=== PATIENT | male | born 1960 | race Caucasian/White ===

== ENCOUNTER 2021-08-12 15:03 | Outpatient (CLI) | payer MEDICARE ==
[~2021-08-12 15:03] MED LIST: Iopamidol 300 61% 100 ML VIAL FS ONE
== END 2021-08-12 15:04 | disposition home or self-care (01) ==
LOC: CSHCT 15:03
PROVIDERS: ATTEND Urology
DX: R31.0 Gross hematuria (principal); K76.0 Fatty (change of) liver, not elsewhere classified; N20.0 Calculus of kidney
CPT/HCPCS: 74178

== ENCOUNTER 2021-09-17 11:56 | Emergency (ER) | payer MEDICARE ==
[2021-09-17 12:43] LABS: #Basophils 0.1 10x3/uL (0.0-0.2); #Monocytes 0.6 10x3/uL (0.0-1.1); #Neutrophils 10.1 10x3/uL (1.5-8.4); %Basophils 0.8 % (0.0-2.0); %Eosinophils 0.3 % (0.0-6.0); %Lymphocytes 7.9 % (18.0-47.0); %Monocytes 5.2 % (0.0-10.0); %Neutrophils 85.5 % (40.0-75.0); Hemoglobin 15.9 g/dL (13.5-17.5); Mean Corpuscular HGB CONC 35.1 g/dL (32.0-36.0); Mean Corpuscular Hemoglobin 32.9 pg (27.0-33.0); Mean Corpuscular Volume 93.6 fl (81.2-95.1); Mean Platelet Volume 9.3 fl (7.4-10.4); Platelet Count 197 10x3/uL (150-450); RBC Distribution Width 13.1 % (11.5-14.5); Red Blood Cell (RBC) Count 4.84 10x6/uL (4.32-5.72); White Blood Cell (WBC) Count 11.8 10x3/uL (3.5-10.5)
[2021-09-17] MEDS ORDERED: Ondansetron PF 4 MG/2 ML Vial ONE ×2 (12:43→16:51)
[2021-09-17] MEDS ORDERED: Morphine 4 MG/ML VIAL ONE (12:43)
[2021-09-17 12:55] LABS: ALT (SGPT) 105 U/L (8-55); AST (SGOT) 87 U/L (5-34); Albumin 4.4 g/dL (3.5-5.0); Alkaline Phosphatase 64 U/L (40-110); Anion Gap 15 mmol/L (10-20); BUN (Urea Nitrogen) 8 mg/dL (8.4-25.7); Bilirubin, Total 0.8 mg/dL (0.2-1.2); Calc. Creatinine Clearance 0 mL/min (70-130); Calcium 9.2 mg/dL (7.8-10.44); Carbon Dioxide 25 mmol/L (22-29); Chloride 98 mmol/L (98-107); Globulin 3.3 g/dL (2.4-3.5); Glucose 129 mg/dL (70-105); Lipase 20 U/L (8-78); Potassium 4.2 mmol/L (3.5-5.1); Protein, Total 7.7 g/dL (6.0-8.3); Sodium 134 mmol/L (136-145)
[2021-09-17] MEDS ORDERED: Ketorolac Tromethamine 30 MG/ML VIAL ONE (13:48)
[2021-09-17] MEDS ORDERED: Promethazine HCl 25 MG/ML VIAL ONE (13:48)
[2021-09-17 13:49] LABS: Bilirubin Neg (Negative); Blood, Urine 250 (Negative); Clarity Slightly Cloudy (Clear); Glucose, Urine (Dipstick) Normal (Negative); Ketone, Urine Negative (Negative); Leukocyte 500 (Negative); Nitrite Negative (Negative); Protein, Urine (Dipstick) 30 mg/dl (Neg-Trace); Urobilinogen Normal mg/dL (Less than 2)
[2021-09-17 13:55] LABS: Bacteria/HPF 1+ HPF (None Seen); RBC/HPF 21-50 HPF (0-3); Squamous Epithelial 0-3 HPF (0-3); WBC/HPF 21-50 HPF (0-3)
[2021-09-17] MEDS ORDERED: Iopamidol 15 ML ONE (14:45)
[2021-09-17] MEDS ORDERED: Iopamidol 300 61% 100 ML VIAL FS ONE (15:23)
[2021-09-17 15:32] LABS: SARS-CoV-2 NAA Rapid Test Not Detected (NotDetected)
[2021-09-17] MEDS ORDERED: Fentanyl 100 MCG/2 ML VIAL ONE (16:47)
[2021-09-17] MEDS ORDERED: PROPOFOL 20 ML ONE ×2 (16:47→17:08)
[2021-09-17] MEDS ORDERED: Succinylcholine 200 MG/10 ml SYRINGE FS ONE (16:51)
[2021-09-17] MEDS ORDERED: Dexamethasone 4 mg/ml Vial ONE (16:51)
[2021-09-17] MEDS ORDERED: Lidocaine 2% PF 5 ML VIAL ONE (16:51)
== END 2021-09-17 16:39 | disposition admitted as inpatient to this hospital (09) ==
LOC: CSHERS 11:56
PROC: 0T9780Z Drainage of Left Ureter with Drainage Device, Via Natural or Artificial Opening Endoscopic (ICD-10-PCS; principal; 2021-09-17)
PROC: 0T778DZ Dilation of Left Ureter with Intraluminal Device, Via Natural or Artificial Opening Endoscopic (ICD-10-PCS; principal; 2021-09-17)
PROC: BT1FZZZ Fluoroscopy of Left Kidney, Ureter and Bladder (ICD-10-PCS; principal; 2021-09-17)
DX: N13.2 Hydronephrosis with renal and ureteral calculous obstruction (principal); N39.0 Urinary tract infection, site not specified; Z20.822 Contact with and (suspected) exposure to COVID-19; I25.2 Old myocardial infarction; E78.5 Hyperlipidemia, unspecified; I10 Essential (primary) hypertension; F17.210 Nicotine dependence, cigarettes, uncomplicated; Z79.899 Other long term (current) drug therapy
CPT/HCPCS: 52332; 74177; 80053; 83605; 83690; 85025; 96361; 96365; 96367; 96375; 99285; C2625; U0002; 81003; 81015; J0744; J1100; J1885; J2001; J2270; J2405; J2550; J2704; J3010; Q9967

== ENCOUNTER 2022-07-24 07:21 | Outpatient (CLI) | payer MEDICARE ==
[2022-07-24] MEDS ORDERED: Iopamidol 300 61% 100 ML VIAL FS ONE (14:30)
== END 2022-07-24 07:22 | disposition home or self-care (01) ==
LOC: CSHCT 07:21
PROVIDERS: ATTEND Urology
DX: C68.9 Malignant neoplasm of urinary organ, unspecified (principal); Z90.5 Acquired absence of kidney; N13.30 Unspecified hydronephrosis; N13.8 Other obstructive and reflux uropathy; R91.8 Other nonspecific abnormal finding of lung field; M87.9 Osteonecrosis, unspecified
CPT/HCPCS: 74178; 82565; Q9967

== ENCOUNTER 2022-12-11 09:53 | Outpatient (CLI) | payer MEDICARE | END 2022-12-11 09:54 | disposition home or self-care (01) | LOC: CSHRAD 09:53 | PROVIDERS: ATTEND Family Medicine | DX: M79.672 Pain in left foot (principal) ==

== ENCOUNTER 2023-05-01 07:26 | Day surgery (SDC) | payer MEDICARE ==
[2023-04-30 08:50] VITALS: BMI 33.3
[2023-05-01] MEDS ORDERED: Midazolam HCl 2 mg/2 ml Vial ONE (09:58)
[2023-05-01] MEDS ORDERED: Glycopyrrolate 0.2 MG/ML 5 ML SYRINGE ONE (09:59)
[2023-05-01] MEDS ORDERED: PROPOFOL 40 ML ONE (09:59)
[2023-05-01] MEDS ORDERED: Lidocaine 1% PF 5 ML VIAL ONE (09:59)
[2023-05-01] MEDS ORDERED: PROPOFOL 20 ML ONE ×4 (10:16→11:01)
== END 2023-05-01 11:45 | disposition home or self-care (01) ==
LOC: CSHSDC 07:26
PROVIDERS: ATTEND Internal Medicine Gastroenterology
PROC: 0DBK8ZX Excision of Ascending Colon, Via Natural or Artificial Opening Endoscopic, Diagnostic (ICD-10-PCS; principal; 2023-05-01)
PROC: 0DBN8ZX Excision of Sigmoid Colon, Via Natural or Artificial Opening Endoscopic, Diagnostic (ICD-10-PCS; 2023-05-01)
PROC: 0DB68ZX Excision of Stomach, Via Natural or Artificial Opening Endoscopic, Diagnostic (ICD-10-PCS; 2023-05-01)
DX: Z12.11 Encounter for screening for malignant neoplasm of colon (principal); D12.6 Benign neoplasm of colon, unspecified; K57.30 Diverticulosis of large intestine without perforation or abscess without bleeding; K64.9 Unspecified hemorrhoids; K44.9 Diaphragmatic hernia without obstruction or gangrene; K29.60 Other gastritis without bleeding; K63.5 Polyp of colon; K31.89 Other diseases of stomach and duodenum; E11.9 Type 2 diabetes mellitus without complications; I10 Essential (primary) hypertension; E78.5 Hyperlipidemia, unspecified; I25.10 Atherosclerotic heart disease of native coronary artery without angina pectoris; I25.2 Old myocardial infarction; K21.9 Gastro-esophageal reflux disease without esophagitis; G47.30 Sleep apnea, unspecified; F17.210 Nicotine dependence, cigarettes, uncomplicated; R19.5 Other fecal abnormalities; Z88.0 Allergy status to penicillin; Z88.8 Allergy status to other drugs, medicaments and biological substances; Z85.528 Personal history of other malignant neoplasm of kidney; Z90.5 Acquired absence of kidney
CPT/HCPCS: 88305; J2250; J2704

== ENCOUNTER 2024-05-19 14:20 | Emergency (ER) | payer MEDICARE ==
[2024-05-19] MEDS ORDERED: Morphine 4 MG/ML VIAL ONE (17:19)
[2024-05-19] MEDS ORDERED: Ketorolac Tromethamine 30 MG (1 mL) VIAL ONE (17:19)
[2024-05-19 17:51] LABS: #Basophils Less than 0.03 10x3/uL (0.0-0.2); #Eosinophils 0.05 10x3/uL (0.0-0.5); #Monocytes 0.45 10x3/uL (0.0-1.1); #Neutrophils 5.16 10x3/uL (1.5-8.4); %Basophils 0.3 % (0.0-2.0); %Eosinophils 0.8 % (0.0-6.0); %Lymphocytes 13.6 % (18.0-47.0); %Monocytes 6.8 % (0.0-10.0); Hematocrit 43.8 % (38.8-50.0); Hemoglobin 14.5 g/dL (13.5-17.5); Mean Corpuscular HGB CONC 33.1 g/dL (32.0-36.0); Mean Corpuscular Hemoglobin 31.3 pg (27.0-33.0); Mean Corpuscular Volume 94.4 fL (81.2-95.1); Mean Platelet Volume 9.3 fL (7.4-10.4); Platelet Count 206 10x3/uL (150-450); RBC Distribution Width 13.2 % (11.5-14.5); Red Blood Cell (RBC) Count 4.64 10x6/uL (4.32-5.72); White Blood Cell (WBC) Count 6.61 10x3/uL (3.5-10.5)
[2024-05-19 18:04] LABS: PTT 34.3 sec (22.0-33.0); Prothrombin Time 11.3 sec (9.5-12.1)
[2024-05-19 18:15] LABS: ALT (SGPT) 8 U/L (Less than 45); AST (SGOT) 17 U/L (11-34); Albumin 4.2 g/dL (3.1-4.5); Alkaline Phosphatase 81 U/L (40-110); Anion Gap 16 mmol/L (10-20); BUN (Urea Nitrogen) 10 mg/dL (8.4-25.7); Bilirubin, Total 0.7 mg/dL (0.3-1.2); Calc. Creatinine Clearance 0 mL/min (70-130); Calcium 9.5 mg/dL (7.8-10.44); Carbon Dioxide 24 mmol/L (23-31); Chloride 102 mmol/L (98-107); Estimated GFR 63; Globulin 3.7 g/dL (2.4-3.5); Glucose 121 mg/dL (80-115); Potassium 3.5 mmol/L (3.5-5.1); Protein, Total 7.9 g/dL (5.8-8.1); Sodium 138 mmol/L (136-145)
[2024-05-19] MEDS ORDERED: HYDROcodone/Acetaminophen 10/325 mg Tablet ONE (19:34)
== END 2024-05-19 20:07 | disposition home or self-care (01) ==
LOC: CSHERS 14:20
DX: S22.32XA Fracture of one rib, left side, initial encounter for closed fracture (principal); S30.1XXA Contusion of abdominal wall, initial encounter; M54.9 Dorsalgia, unspecified; I10 Essential (primary) hypertension; E11.9 Type 2 diabetes mellitus without complications; J44.9 Chronic obstructive pulmonary disease, unspecified; F17.210 Nicotine dependence, cigarettes, uncomplicated; E78.5 Hyperlipidemia, unspecified; Z79.899 Other long term (current) drug therapy; W22.8XXA Striking against or struck by other objects, initial encounter
CPT/HCPCS: 71250; 74177; 80053; 85025; 85610; 85730; 94760; 94799; J1885; J2270; 96374; 96375